=== PATIENT | male | born 1980 | race Caucasian/White ===

== ENCOUNTER 2022-05-18 14:40 | Outpatient (CLI) | payer OTHER | END 2022-05-18 14:41 | disposition home or self-care (01) | LOC: LABBT 14:40 | PROVIDERS: ATTEND Orthopaedic Surgery Hand Surgery | DX: Z01.812 Encounter for preprocedural laboratory examination (principal); M72.0 Palmar fascial fibromatosis [Dupuytren]; Z20.822 Contact with and (suspected) exposure to COVID-19 | CPT/HCPCS: 87811 ==

== ENCOUNTER 2022-05-22 11:36 | Day surgery (SDC) | payer OTHER ==
[2022-05-19 11:26] VITALS: BMI 25.0
[2022-05-22] MEDS ORDERED: Sodium Chloride 0.9% 100 ML ONE (13:07)
[2022-05-22] MEDS ORDERED: CEFAZOLIN 2 GM VIAL ONE (13:07)
[2022-05-22] MEDS ORDERED: Collagenase Clostridium Hist. 0.9 MG VIAL IJ SCH (13:15)
[2022-05-22] MEDS ORDERED: PROPOFOL 200 MG/20 ML VIAL ONE (13:22)
[2022-05-22] MEDS ORDERED: Lidocaine 1% PF 5 ML VIAL ONE (13:22)
[2022-05-22] MEDS ORDERED: Bupivacaine PF 0.5% 30 ML VIAL ONE (13:36)
[2022-05-22] MEDS ORDERED: Ketorolac Tromethamine 30 MG/ML VIAL ONE (14:20)
== END 2022-05-22 14:35 | disposition home or self-care (01) ==
LOC: SDC 11:36
PROVIDERS: ATTEND Orthopaedic Surgery Hand Surgery
PROC: 3E013TZ Introduction of Destructive Agent into Subcutaneous Tissue, Percutaneous Approach (ICD-10-PCS; principal; 2022-05-22)
DX: M72.0 Palmar fascial fibromatosis [Dupuytren] (principal); L71.9 Rosacea, unspecified; Z79.899 Other long term (current) drug therapy
CPT/HCPCS: J0690; J0775; J1885; J2704; J3490; S0020

== ENCOUNTER 2024-11-03 08:43 | Outpatient (CLI) | payer OTHER ==
[2024-11-03 10:02] LABS: #Basophils 0.03 10x3/uL (0.0-0.2); %Basophils 0.6 % (0.0-1.0); %Eosinophils 1.1 % (0.0-10.0); %Lymphocytes 42.9 % (21.0-51.0); %Monocytes 9.4 % (0.0-10.0); %Neutrophils 45.4 % (42.0-75.0); Hematocrit 42.6 % (42.0-52.0); Hemoglobin 14.6 g/dL (14.0-18.0); Mean Corpuscular HGB CONC 34.3 g/dL (32.0-36.0); Mean Corpuscular Hemoglobin 31.5 pg (27.0-31.0); Mean Corpuscular Volume 91.8 fL (78.0-98.0); Mean Platelet Volume 10.1 fL (7.4-10.4); Platelet Count 251 10x3/uL (130-400); RBC Distribution Width 12.5 % (11.5-14.5); Red Blood Cell (RBC) Count 4.64 mill/uL (4.70-6.10)
== END 2024-11-03 08:44 | disposition home or self-care (01) ==
LOC: LABBT 08:43
PROVIDERS: ATTEND Orthopaedic Surgery Hand Surgery
DX: Z01.812 Encounter for preprocedural laboratory examination (principal); M72.0 Palmar fascial fibromatosis [Dupuytren]
CPT/HCPCS: 85025

== ENCOUNTER 2024-11-07 09:27 | Day surgery (SDC) | payer OTHER ==
[2024-11-03 09:03] VITALS: BMI 24.4
[2024-11-07] MEDS ORDERED: Bupivacaine PF 0.5% 30 ML VIAL ONE (11:48)
[2024-11-07] MEDS ORDERED: Sodium Chloride 0.9% 100 ML ONE (11:53)
[2024-11-07] MEDS ORDERED: CEFAZOLIN 2 GM VIAL ONE (11:53)
[2024-11-07] MEDS ORDERED: Famotidine/PF 20 mg/2ml Vial ONE (11:54)
[2024-11-07] MEDS ORDERED: PROPOFOL 20 ML ONE (11:58)
[2024-11-07] MEDS ORDERED: Midazolam HCl 2 mg/2 ml Vial ONE (11:59)
[2024-11-07] MEDS ORDERED: fentaNYL 50 mcg/mL 1 mL Vial ONE ×4 (11:59→15:41)
[2024-11-07] MEDS ORDERED: Lidocaine 2% PF 5 ML VIAL ONE (12:01)
[2024-11-07] MEDS ORDERED: Bacitracin Zinc Ointment 30 gm TUBE ONE (12:36)
[2024-11-07] MEDS ORDERED: PHENYLEPHRINE-NS 100 MCG/ML 10 ML SYRINGE ONE (13:00)
[2024-11-07] MEDS ORDERED: Ondansetron PF 4 MG/2 ML Vial ONE (13:21)
[2024-11-07] MEDS ORDERED: Dexamethasone 4 mg/ml Vial ONE (13:21)
[2024-11-07] MEDS ORDERED: Ketorolac Tromethamine 30 MG (1 mL) VIAL ONE ×2 (14:58→15:29)
[2024-11-07] MEDS ORDERED: HYDROcodone/Acetaminophen 5/325 mg Tablet ONE (16:00)
== END 2024-11-07 16:25 | disposition home or self-care (01) ==
LOC: SDC 09:27
PROVIDERS: ATTEND Orthopaedic Surgery Hand Surgery
PROC: 01Q40ZZ Repair Ulnar Nerve, Open Approach (ICD-10-PCS; principal; 2024-11-07)
PROC: 01Q60ZZ Repair Radial Nerve, Open Approach (ICD-10-PCS; principal; 2024-11-07)
PROC: 0JNK0ZZ Release Left Hand Subcutaneous Tissue and Fascia, Open Approach (ICD-10-PCS; principal; 2024-11-07)
DX: M72.0 Palmar fascial fibromatosis [Dupuytren] (principal); M72.2 Plantar fascial fibromatosis; E29.1 Testicular hypofunction; Z86.16 Personal history of COVID-19; Z79.899 Other long term (current) drug therapy
CPT/HCPCS: J0665; J1100; J1885; J2250; J2405; J2704; J3010; J3490

== ENCOUNTER 2025-09-01 05:37 | Day surgery (SDC) | payer OTHER, SELFPAY ==
[2025-08-31 10:00] VITALS: BMI 25.0
[2025-09-01] MEDS ORDERED: Collagenase Clostridium Hist. 0.9 MG VIAL IJ SCH (06:45)
[2025-09-01] MEDS ORDERED: Lidocaine 1% PF 5 ML VIAL ONE (06:56)
[2025-09-01] MEDS ORDERED: PROPOFOL 20 ML ONE ×3 (06:56→07:15)
[2025-09-01] MEDS ORDERED: Collagenase Clostridium Hist. 0.9 MG VIAL ONE (07:00)
[2025-09-01] MEDS ORDERED: Ketorolac Tromethamine 30 MG (1 mL) VIAL ONE (07:44)
== END 2025-09-01 08:32 | disposition home or self-care (01) ==
LOC: SDC 05:37
PROVIDERS: ATTEND Orthopaedic Surgery Hand Surgery
PROC: 3E013TZ Introduction of Destructive Agent into Subcutaneous Tissue, Percutaneous Approach (ICD-10-PCS; principal; 2025-09-01)
DX: M72.0 Palmar fascial fibromatosis [Dupuytren] (principal); M79.2 Neuralgia and neuritis, unspecified; M72.2 Plantar fascial fibromatosis; T81.89XA Other complications of procedures, not elsewhere classified, initial encounter; Y83.8 Other surgical procedures as the cause of abnormal reaction of the patient, or of later complication, without mention of misadventure at the time of the procedure
CPT/HCPCS: J0775; J1885; J2704